=== PATIENT | male | born 1960 | race Caucasian/White ===

== ENCOUNTER 2017-10-24 10:13 | Emergency (ER) | payer OTHER ==
[~2017-10-24] VITALS: Ht 177.8 cm; Wt 74.4 kg
[2017-10-24 10:17] VITALS: Ht 177.8 cm; Wt 74.4 kg
[2017-10-24 10:56] VITALS: BP 137/84
== END 2017-10-24 10:56 | disposition home or self-care (01) ==
LOC: ED 10:13
DX: R51 Headache (principal); R42 Dizziness and giddiness